=== PATIENT | male | born 1940 | race Caucasian/White ===

== ENCOUNTER 2017-09-06 09:13 | Emergency (ER) | payer MEDICARE, OTHER ==
[~2017-09-06] VITALS: Ht 167.6 cm; Wt 68.0 kg
[2017-09-06] MEDS ORDERED: EC-NAPROSYN500 MG PO (09:43)
[2017-09-06] MEDS ORDERED: LORTAB 5/3255 MG PO (09:43)
[2017-09-06] MEDS ORDERED: FLEXERIL PO (09:43)
[2017-09-06] MEDS ORDERED: PRAVASTATIN20 MG PO (09:59)
[2017-09-06] MEDS ORDERED: METFORMIN500 MG PO (09:59)
[2017-09-06] MEDS ORDERED: CARVEDILOL3.125 MG PO (10:00)
[2017-09-06] MEDS ORDERED: ASPIRIN 8181 MG PO (10:01)
[2017-09-06] MEDS ORDERED: AMLODIPINE5 MG PO (10:02)
[2017-09-06] MEDS ORDERED: CILOSTAZOL100 MG PO (10:03)
[2017-09-06] MEDS ORDERED: LISINOPRIL2.5 MG PO (10:03)
[2017-09-06] MEDS ORDERED: VITAMIN D1000 UNIT PO (10:04)
[2017-09-06 10:48] VITALS: BP 176/82
== END 2017-09-06 10:55 | disposition home or self-care (01) ==
LOC: ED 09:13
DX: S29.9XXA Unspecified injury of thorax, initial encounter (principal); I10 Essential (primary) hypertension; E11.9 Type 2 diabetes mellitus without complications; I25.10 Atherosclerotic heart disease of native coronary artery without angina pectoris; W19.XXXA Unspecified fall, initial encounter; Z95.1 Presence of aortocoronary bypass graft

== ENCOUNTER 2018-07-04 10:39 | Emergency (ER) | payer MEDICARE, OTHER ==
[~2018-07-04] VITALS: Ht 167.6 cm; Wt 75.0 kg
[~2018-07-04 10:39] MED LIST: AMLODIPINE5 MG PO; ASPIRIN 8181 MG PO; CARVEDILOL3.125 MG PO; CILOSTAZOL100 MG PO; EC-NAPROSYN500 MG PO; FLEXERIL PO; LISINOPRIL2.5 MG PO; LORTAB 5/3255 MG PO; METFORMIN500 MG PO; PRAVASTATIN20 MG PO; VITAMIN D1000 UNIT PO
[2018-07-04] MEDS ORDERED: FLEXERIL5 M1 PO (10:59)
[2018-07-04 11:20] VITALS: BP 134/67
== END 2018-07-04 11:20 | disposition home or self-care (01) ==
LOC: ED 10:39
DX: M79.631 Pain in right forearm (principal); S56.911A Strain of unspecified muscles, fascia and tendons at forearm level, right arm, initial encounter; M62.838 Other muscle spasm; X50.0XXA Overexertion from strenuous movement or load, initial encounter; Y93.E9 Activity, other interior property and clothing maintenance; Y92.009 Unspecified place in unspecified non-institutional (private) residence as the place of occurrence of the external cause

== ENCOUNTER 2020-07-17 01:37 | Inpatient (IN) | payer MEDICARE, OTHER ==
[2020-07-17] VITALS (11 sets, daily range): BP systolic 92–152; BP diastolic 44–79
[~2020-07-17] VITALS: Ht 274.3 cm; Wt 69.8 kg
[~2020-07-17 01:37] MED LIST changes: +FLEXERIL5 M1 PO
[2020-07-17 02:54] LABS: HEMATOCRIT 40.2 % (39.0-50.0); HEMOGLOBIN 13.3 g/dl (14.0-18.0); IMMATURE GRANULOCYTES 0.5 % (0.0-5.0); MEAN CELL VOLUME 93.5 fL CALC (80.0-100.0); MEAN CORPUSCULAR HGB 30.9 pG CALC (26.0-32.0); MEAN CORPUSCULAR HGB CONC 33.1 g/dL CAL (32.0-36.0); NEUT# 4.56 thou/uL (1.82-7.42); RED BLOOD COUNT 4.3 mill/uL (4.70-6.10); RED CELL DISTRI WIDTH 13.5 % (11.5-15.5)
[2020-07-17] MEDS ORDERED: XARELTO2.5 MG PO (03:12)
[2020-07-17 03:13] LABS: ALBUMIN 4.1 g/dL (3.2-5.0); BILIRUBIN, TOTAL 0.4 mg/dL (0.0-1.4); POTASSIUM 3.5 mmol/l (3.5-5.1); TOTAL PROTEIN 7.5 g/dL (6.3-8.2)
[2020-07-17] MEDS ORDERED: ALPHAGAN P0.15 % OU (03:13)
[2020-07-17 04:14] LABS: C. DIFFICILE TOXIN A&B NEGATIVE (NEGATIVE)
[2020-07-18] VITALS (7 sets, daily range): BP systolic 90–132; BP diastolic 46–60
[2020-07-18 05:46] LABS: HEMATOCRIT 38.5 % (39.0-50.0); HEMOGLOBIN 12.8 g/dl (14.0-18.0); MEAN CELL VOLUME 93.2 fL CALC (80.0-100.0); MEAN CORPUSCULAR HGB CONC 33.2 g/dL CAL (32.0-36.0); RED BLOOD COUNT 4.13 mill/uL (4.70-6.10); RED CELL DISTRI WIDTH 13.6 % (11.5-15.5)
[2020-07-18 06:06] LABS: MAGNESIUM 1.9 mg/dL (1.6-2.3); POTASSIUM 3.6 mmol/l (3.5-5.1)
[2020-07-18 06:09] LABS: CREATININE 2.2 mg/dL (0.7-1.3)
[2020-07-18 13:13] LABS: URINE BILIRUBIN - DIPSTICK NEGATIVE (NEGATIVE); URINE BLOOD DIPSTICK SMALL (NEGATIVE); URINE COLOR YELLOW; URINE GLUCOSE - DIPSTICK NEGATIVE (NEGATIVE); URINE KETONE NEGATIVE (NEGATIVE); URINE LEUK ESTERASE NEGATIVE (NEGATIVE); URINE NITRITE - DIPSTICK NEGATIVE (Negative); URINE PH 5.5 (4.5-8.0); URINE PROTEIN - DIPSTICK 30 mg/dL (NEG-TRACE); URINE UROBILINOGEN - DIPSTICK 0.2 E.U./dL (0.2)
[2020-07-18 13:23] LABS: URINE EPITHELIAL CELLS FEW EPI/hpf (0-FEW); URINE MUCUS FEW hpf (NONE-FEW); URINE RBC 0-2 RBC/hpf (0-5)
[2020-07-19 03:34] LABS: C. DIFFICILE TOXIN A&B NEGATIVE (NEGATIVE)
[2020-07-19 04:00] VITALS: BP 124/60
[2020-07-19 05:30] LABS: HEMATOCRIT 33.6 % (39.0-50.0); HEMOGLOBIN 11.4 g/dl (14.0-18.0); IMMATURE GRANULOCYTES 0.4 % (0.0-5.0); MEAN CELL VOLUME 93.9 fL CALC (80.0-100.0); MEAN CORPUSCULAR HGB 31.8 pG CALC (26.0-32.0); MEAN CORPUSCULAR HGB CONC 33.9 g/dL CAL (32.0-36.0); NEUT# 5.17 thou/uL (1.82-7.42); RED BLOOD COUNT 3.58 mill/uL (4.70-6.10); RED CELL DISTRI WIDTH 14.1 % (11.5-15.5)
[2020-07-19 05:55] LABS: C-REACTIVE PROTEIN 2.2 mg/dL (0-0.9); CREATININE 1.7 mg/dL (0.7-1.3); POTASSIUM 3.7 mmol/l (3.5-5.1)
[2020-07-19 05:56] LABS: ALBUMIN 2.8 g/dL (3.2-5.0); BILIRUBIN, TOTAL 0.2 mg/dL (0.0-1.4); TOTAL PROTEIN 5.4 g/dL (6.3-8.2)
[2020-07-19 11:31] VITALS: BP 102/38
[2020-07-19 15:23] VITALS: BP 123/58
[2020-07-19] MEDS ORDERED: DEXAMETHASON6 MG PO (15:46)
[2020-07-19] MEDS ORDERED: AZITHROMYCIN500 MG PO (15:48)
== END 2020-07-19 18:28 | disposition home or self-care (01) | DRG 177 ==
LOC: ED 01:37 → ED-I 03:39 → ED 03:55 → ICU 03:56 → MS2 03:56
PROVIDERS: Emergency Medicine; Nurse Practitioner; ADMIT Internal Medicine; ATTEND Internal Medicine
PROC: XW033E5 Introduction of Remdesivir Anti-infective into Peripheral Vein, Percutaneous Approach, New Technology Group 5 (ICD-10-PCS; principal; 2020-07-18)
DX: U07.1 COVID-19 (principal); J12.82 Pneumonia due to coronavirus disease 2019; A04.5 Campylobacter enteritis; N17.9 Acute kidney failure, unspecified; E86.0 Dehydration; I25.10 Atherosclerotic heart disease of native coronary artery without angina pectoris; I12.9 Hypertensive chronic kidney disease with stage 1 through stage 4 chronic kidney disease, or unspecified chronic kidney disease; E11.22 Type 2 diabetes mellitus with diabetic chronic kidney disease; N18.30 Chronic kidney disease, stage 3 unspecified; E78.5 Hyperlipidemia, unspecified; G89.29 Other chronic pain; M54.9 Dorsalgia, unspecified; Z79.01 Long term (current) use of anticoagulants; Z79.84 Long term (current) use of oral hypoglycemic drugs; Z79.82 Long term (current) use of aspirin; Z79.899 Other long term (current) drug therapy; Z95.1 Presence of aortocoronary bypass graft

== ENCOUNTER 2020-09-04 18:27 | Emergency (ER) | payer MEDICARE, OTHER ==
[~2020-09-04] VITALS: Ht 167.6 cm; Wt 70.5 kg
[~2020-09-04 18:27] MED LIST changes: +ALPHAGAN P0.15 % OU; +AZITHROMYCIN500 MG PO; +DEXAMETHASON6 MG PO; +XARELTO2.5 MG PO
[2020-09-04] MEDS ORDERED: VITAMIN D31000 UNI1 PO (19:19)
[2020-09-04] MEDS ORDERED: ZINC220 MG PO (19:20)
[2020-09-04] MEDS ORDERED: ASCORBIC ACD500 MG PO (19:20)
[2020-09-04] MEDS ORDERED: B-12 TR1000 MCG PO (19:21)
[2020-09-04] MEDS ORDERED: PANTOPRAZOLE SO40 M1 PO (19:21)
[2020-09-04] MEDS ORDERED: GLIPIZIDE ER5 MG PO (19:22)
[2020-09-04] MEDS ORDERED: LASIX20 MG PO (19:23)
[2020-09-04] MEDS ORDERED: K-TABS10 MEQ PO (19:24)
[2020-09-04] MEDS ORDERED: AMOX/K CLAV875 M1 PO (19:24)
[2020-09-04 19:44] LABS: HEMATOCRIT 32.5 % (39.0-50.0); HEMOGLOBIN 10.2 g/dl (14.0-18.0); IMMATURE GRANULOCYTES 0.4 % (0.0-5.0); MEAN CORPUSCULAR HGB 31.4 pG CALC (26.0-32.0); MEAN CORPUSCULAR HGB CONC 31.4 g/dL CAL (32.0-36.0); NEUT# 3.91 thou/uL (1.82-7.42); RED BLOOD COUNT 3.25 mill/uL (4.70-6.10); RED CELL DISTRI WIDTH 15.6 % (11.5-15.5)
[2020-09-04 20:01] LABS: CREATININE 1.5 mg/dL (0.7-1.3); POTASSIUM 3.2 mmol/l (3.5-5.1)
[2020-09-04 20:02] LABS: D-DIMER 4.38 mg/L (0.19-0.60)
[2020-09-04 20:06] LABS: ALBUMIN 3.9 g/dL (3.2-5.0); TOTAL PROTEIN 7.1 g/dL (6.3-8.2)
[2020-09-04 20:07] LABS: ACT PARTIAL THROMBO TIME 28.5 SECONDS (20.0-32.5); INTERNATIONAL NORMALIZED RATIO 1.3 RATIO (0.7-1.3); PROTHROMBIN TIME 12.4 SECONDS (9.0-12.5)
[2020-09-04 22:00] VITALS: BP 125/68
== END 2020-09-04 22:00 | disposition short-term general hospital (02) ==
LOC: ED 18:27
PROVIDERS: Family Medicine
DX: U07.1 COVID-19 (principal); J12.82 Pneumonia due to coronavirus disease 2019; J96.91 Respiratory failure, unspecified with hypoxia; I21.4 Non-ST elevation (NSTEMI) myocardial infarction; I10 Essential (primary) hypertension; E11.9 Type 2 diabetes mellitus without complications; I25.10 Atherosclerotic heart disease of native coronary artery without angina pectoris; Z79.84 Long term (current) use of oral hypoglycemic drugs; Z95.1 Presence of aortocoronary bypass graft; Z99.81 Dependence on supplemental oxygen
CPT/HCPCS: J1644